=== PATIENT | female | born 1965 | race Caucasian/White ===

== ENCOUNTER 2022-02-07 16:20 | Observation (INO) | payer BC ==
[2022-02-07 17:34] LABS: BASO % 0.5 % (0-2.0); EOS % 0.8 % (0-4.5); HEMATOCRIT 37.7 % (32.4-45.2); HEMOGLOBIN 12.8 GM/dL (10.7-15.3); LYMPH % 30.4 % (8-40); MCH 31.7 pg (25.7-33.7); MCHC 33.9 g/dl (32.0-36.0); MEAN CELL VOLUME 93.7 fl (80-96); MEAN PLT VOLUME 9.6 fl (7.5-11.1); MONO % 7.9 % (3.8-10.2); NEUT % 60.4 % (42.8-82.8); PLATELET COUNT 252 10^3/uL (134-434); RBC 4.02 M/mm3 (3.60-5.2); RDW 12.6 % (11.6-15.6); WHITE BLOOD COUNT 6.9 K/mm3 (4.0-10.0)
[2022-02-07 17:38] LABS: INR 1.05 (0.83-1.09); PROTHROMBIN TIME (PATIENT) 12.1 SEC (9.7-13.0)
[2022-02-07 17:41] LABS: ACTIVATED PTT 33.3 SECONDS (25.2-36.5)
[2022-02-07 18:02] LABS: CHLORIDE 105 mmol/L (98-107); SODIUM 139 mmol/L (136-145)
[2022-02-07 18:04] LABS: ANION GAP 8 MMOL/L (8-16); BLOOD UREA NITROGEN 18.8 mg/dL (7-18); CALCIUM 8.9 mg/dL (8.5-10.1); CO2 27 mmol/L (21-32); GLUCOSE,RANDOM 95 mg/dL (74-106)
[2022-02-07 18:05] LABS: ALBUMIN 3.9 g/dl (3.4-5.0)
[2022-02-07 18:07] LABS: CHOLESTEROL 223 mg/dL (50-200); CREATININE 0.8 mg/dL (0.55-1.3); SGOT/AST 24 U/L (15-37)
[2022-02-07 18:08] LABS: SGPT/ALT 36 U/L (13-61)
[2022-02-07 18:09] LABS: BILIRUBIN,TOTAL 0.4 mg/dL (0.2-1); TOT PROT 7.4 g/dl (6.4-8.2)
[2022-02-07 18:10] LABS: ALK PHOS 72 U/L (45-117)
[2022-02-07] MEDS ORDERED: ACETAMINOPHEN 1000 MG/100 ML BAG IVPB ONE (20:29)
[2022-02-07] MEDS ORDERED: ACETAMINOPHEN INJECTION 100 ML IVPB ONE (20:29)
[2022-02-07] MEDS ORDERED: ASPIRIN 81 MG CHEWABLE TABLETS PO ONE (21:44)
[2022-02-07] MEDS ORDERED: ASPIRIN 81 MG CHEWABLE TABLETS ONE (21:47)
[2022-02-07] MEDS ORDERED: ACETAMINOPHEN 325 MG TABLET (FP) PO PRN (23:12)
[2022-02-07 23:34] LABS: TRIGLYCERIDES 257 mg/dL (0-150)
[2022-02-07 23:35] LABS: LDL CHOLESTEROL (ONLY SJRH) 118 mg/dL (5-100)
[2022-02-07 23:37] LABS: HDL CHOLESTEROL 61 mg/dL (40-60)
[2022-02-08] MEDS ORDERED: oxyCODONE HCL 5 MG TABLET PO PRN (00:13)
[2022-02-08] MEDS ORDERED: ACETAMINOPHEN 325 MG TABLET (FP) PO PRN (00:14)
[2022-02-08 01:29] VITALS: RESP 16; BMI 34.7
[2022-02-08] MEDS ORDERED: PANTOPRAZOLE 20 MG TABLET PO SCH (10:00)
[2022-02-08] MEDS ORDERED: HEPARIN NA (PORCINE) 5,000 UNITS/ML 1ML VIAL SQ SCH (10:00)
[2022-02-08 13:01] VITALS: BP 137/77; PULSE 69; TEMP 98.7
[2022-02-08] MEDS ORDERED: CYCLOBENZAPRINE HCL 5 MG TABLET PO PRN (13:13)
[2022-02-08] MEDS ORDERED: GABAPENTIN 300 MG CAPSULE PO PRN (13:13)
[2022-02-08] MEDS ORDERED: ROSUVASTATIN CA 10 MG TABLET PO SCH (22:00)
[2022-02-08] MEDS ORDERED: ROSUVASTATIN CA 5 MG TABLET PO SCH (22:00)
== END 2022-02-08 14:37 | disposition home or self-care (01) ==
LOC: JER 16:20 → JERBED 20:16 → J4S 22:02
PROVIDERS: ADMIT Internal Medicine; ATTEND Internal Medicine
PROC: 3E033NZ Introduction of Analgesics, Hypnotics, Sedatives into Peripheral Vein, Percutaneous Approach (ICD-10-PCS; principal; 2022-02-07)
PROC: 3E023GC Introduction of Other Therapeutic Substance into Muscle, Percutaneous Approach (ICD-10-PCS; 2022-02-07)
DX: E78.5 Hyperlipidemia, unspecified (principal); E66.8 Other obesity; Z68.34 Body mass index [BMI] 34.0-34.9, adult; F41.8 Other specified anxiety disorders; R07.89 Other chest pain; Z88.8 Allergy status to other drugs, medicaments and biological substances; Z91.018 Allergy to other foods; Z72.89 Other problems related to lifestyle
CPT/HCPCS: 36415; 71046-TC-FY; 71275-TC; 74174-TC; 80053; 80061; 82550; 83036; 84443; 84484; 85025; 85610; 85730; 86850; 86900; 86901; 93005; 93010; 93306-TC; 93351; 96372; 96374; 99285-25; C9803-CS; G0378; J1644; Q9967; U0003; U0005

== ENCOUNTER 2024-01-02 04:32 | Day surgery (SDC) | payer BC ==
[2023-12-29 10:19] VITALS: BMI 34.0
[2024-01-02 09:26] VITALS: TEMP 98
[2024-01-02 10:04] VITALS: BP 104/69; PULSE 68; RESP 12
== END 2024-01-02 10:15 | disposition home or self-care (01) ==
LOC: JASU-ENDO 04:32
PROVIDERS: ATTEND Internal Medicine Gastroenterology
PROC: 0DJD8ZZ Inspection of Lower Intestinal Tract, Via Natural or Artificial Opening Endoscopic (ICD-10-PCS; principal; 2024-01-02 09:00)
DX: Z12.11 Encounter for screening for malignant neoplasm of colon (principal)